=== PATIENT | female | born 2005 | race Hispanic/Latino ===

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

== ENCOUNTER 2024-01-02 21:43 | Emergency (ER) | payer SELFPAY ==
[~2024-01-02] VITALS: Ht 162.6 cm; Wt 82.7 kg
[~2024-01-02 21:43] MED LIST changes: +ONDA-282 PO; -ONDA4TAB6 PO
[2024-01-02 21:44] VITALS: BP 125/73; TEMP 98.2; O2SAT 99
== END 2024-01-03 00:12 | disposition left against medical advice (07) ==
LOC: M ED 21:43
DX: Z53.21 Procedure and treatment not carried out due to patient leaving prior to being seen by health care provider (principal)

== ENCOUNTER 2024-01-03 18:55 | Emergency (ER) | payer SELFPAY ==
[~2024-01-03] VITALS: Ht 162.6 cm; Wt 81.1 kg
[2024-01-03 21:58] VITALS: BP 120/68; TEMP 97.6; O2SAT 97
== END 2024-01-04 05:28 | disposition left against medical advice (07) ==
LOC: M ED 18:55
DX: Z53.21 Procedure and treatment not carried out due to patient leaving prior to being seen by health care provider (principal)

== ENCOUNTER 2024-01-05 20:57 | Emergency (ER) | payer SELFPAY ==
[~2024-01-05] VITALS: Ht 162.6 cm; Wt 81.7 kg
[2024-01-05 23:22] VITALS: BP 129/74; TEMP 97.5; O2SAT 100
[2024-01-06] MEDS: KETOROLAC 60MG 2ML VIAL IM ONE (00:07)
[2024-01-06 00:54] LABS: BASO % 0.3 % (0.0-1.0); EOS # 0.1 10^3/uL (0.0-0.5); EOS % 0.7 % (0.0-3.0); HEMATOCRIT 38.1 % (36.0-47.0); HEMOGLOBIN 12.1 g/dl (12.0-15.5); LYMPH # 1.7 10^3/uL (1.5-5.0); LYMPH % 17.7 % (24.0-44.0); MEAN CORPUSCULAR HEMOGLOBIN 26.5 pg (27.0-33.0); MEAN CORPUSCULAR HGB CONC 31.8 g/dl (32.0-36.5); MEAN CORPUSCULAR VOLUME 83.4 fl (80.0-96.0); MONO # 0.4 10^3/uL (0.0-0.8); MONO % 4.1 % (2.0-8.0); NEUTROPHILS # 7.2 10^3/uL (1.5-8.5); NEUTROPHILS % 76.8 % (36.0-66.0); PLATELET COUNT, AUTOMATED 267 10^3/uL (150-450); RED BLOOD COUNT 4.57 10^6/uL (4.00-5.40); WHITE BLOOD COUNT 9.4 10^3/uL (4.0-10.0)
[2024-01-06 00:58] LABS: BLOOD UREA NITROGEN 7 MG/DL (9-23); CARBON DIOXIDE LEVEL 29 MMOL/L (20-31); CHLORIDE LEVEL 107 MMOL/L (98-107); CREATININE FOR GFR 0.52 MG/DL (0.55-1.30); GLUCOSE, FASTING 79 MG/DL (60-100); SODIUM LEVEL 139 MMOL/L (136-145)
[2024-01-06] MEDS ORDERED: BACT800T5 PO (01:42)
[2024-01-06] MEDS: BACTRIM 160MG/800MG DS TAB PO ONE (01:45)
== END 2024-01-06 02:02 | disposition home or self-care (01) ==
LOC: M ED 20:57
DX: N61.1 Abscess of the breast and nipple (principal); Z79.899 Other long term (current) drug therapy; Z88.8 Allergy status to other drugs, medicaments and biological substances
CPT/HCPCS: 76642; 80048; 85025; 99283; J1885

== ENCOUNTER 2025-04-12 19:35 | Emergency (ER) | payer MEDICAID, OTHER, SELFPAY ==
[~2025-04-12] VITALS: Ht 160 cm; Wt 95.3 kg
[~2025-04-12 19:35] MED LIST changes: +BACT800T5 PO
[2025-04-12] MEDS ORDERED: FAMO40TA3 PO (19:41)
[2025-04-12] MEDS ORDERED: OMEP40CA4 PO (19:41)
[2025-04-12] MEDS: KETOROLAC 60 MG/2 ML VIAL IM ONE (22:49)
[2025-04-12] MEDS: ANUSOL HC CREAM 30 GM TOP PRN (22:49)
[2025-04-12] MEDS: LIDOCAINE 2% 5 ML JELLY UROJET TOP ONE (22:49)
[2025-04-12] MEDS ORDERED: [UNRECOGNIZED DRUG - CODE] TP (23:17)
[2025-04-13] MEDS ORDERED: PREPARATION H OINTMENT (HEMORRHOID) PR PRN (00:15)
[2025-04-13] MEDS: LIDOCAINE 2% 5 ML JELLY UROJET TOP ONE (00:29)
[2025-04-13 00:30] VITALS: BP 113/79; TEMP 98.2; O2SAT 98
== END 2025-04-13 00:31 | disposition home or self-care (01) ==
LOC: M ED 19:35
DX: K64.5 Perianal venous thrombosis (principal); F17.290 Nicotine dependence, other tobacco product, uncomplicated; Z88.8 Allergy status to other drugs, medicaments and biological substances; Z79.899 Other long term (current) drug therapy
CPT/HCPCS: 96372; 99283; J1885

== ENCOUNTER 2025-04-30 04:49 | Emergency (ER) | payer OTHER ==
[~2025-04-30] VITALS: Ht 160 cm; Wt 93.1 kg
[~2025-04-30 04:49] MED LIST changes: +FAMO40TA3 PO; +OMEP40CA4 PO; +[UNRECOGNIZED DRUG - CODE] TP
[2025-04-30 05:59] LABS: KETONE, URINE AUTO RFX 1+ mg/dL (NEGATIVE); LEUKOCYTE ESTERASE UR AUTO RFX NEGATIVE (NEGATIVE); MUCUS, URINE RFX SMALL (NEGATIVE); NITRITE, URINE AUTO RFX NEGATIVE (NEGATIVE); RBC, URINE AUTO RFX 14 /HPF (0-3); SQUAM EPITHELIAL CELL UR AURFX 1 /HPF (0-6); WBC, URINE AUTO RFX 2 /HPF (0-3)
[2025-04-30 06:22] LABS: HCG, SERUM QUALITATIVE NEGATIVE (NEGATIVE)
[2025-04-30 06:25] LABS: ALT/SGPT 18 U/L (7.0-40); AST/SGOT 18 U/L (<34); BASO # 0.0 10^3/uL (0.0-0.2); BASO % 0.2 % (0.0-1.0); CALCIUM LEVEL 9.8 MG/DL (8.5-10.1); CARBON DIOXIDE LEVEL 26 MMOL/L (20-31); CHLORIDE LEVEL 103 MMOL/L (98-107); CREATININE FOR GFR 0.60 MG/DL (0.55-1.30); EOS # 0.0 10^3/uL (0.0-0.5); EOS % 0.1 % (0.0-3.0); GLOMERULAR FILTRATION RATE > 90.0 (>60); LYMPH # 1.3 10^3/uL (1.5-5.0); LYMPH % 7.6 % (24.0-44.0); MONO # 0.6 10^3/uL (0.0-0.8); MONO % 3.7 % (2.0-8.0); NEUTROPHILS # 15.1 10^3/uL (1.5-8.5); NEUTROPHILS % 88.0 % (36.0-66.0); PLATELET COUNT, AUTOMATED 384 10^3/uL (150-450); POTASSIUM SERUM 4.4 MMOL/L (3.5-5.1); SODIUM LEVEL 140 MMOL/L (136-145)
[2025-04-30] MEDS: ONDANSETRON 4MG/2ML VIAL IV ONE (08:08)
[2025-04-30] MEDS: KETOROLAC 30 MG/ML 1 ML VIAL IV ONE (08:08)
[2025-04-30 09:35] LABS: HIV 1&2 SCREEN NEGATIVE (NEGATIVE)
[2025-04-30 10:17] LABS: GC DNA AMPLIFICATION NEGATIVE (NEGATIVE)
[2025-04-30] MEDS ORDERED: ISOVUE-370 76% 100 ML VIAL As Ordered ONE (10:33)
[2025-04-30 11:45] VITALS: TEMP 98.3
[2025-04-30] MEDS ORDERED: DOXY-441 PO (12:09)
[2025-04-30] MEDS ORDERED: METR-265 PO (12:09)
[2025-04-30] MEDS: DOXYCYCLINE HYCLATE 100 MG TABLET PO ONE (12:19)
[2025-04-30 12:20] VITALS: BP 118/79; O2SAT 100
== END 2025-04-30 12:29 | disposition home or self-care (01) ==
LOC: M ED 04:49
DX: A74.9 Chlamydial infection, unspecified (principal); K21.9 Gastro-esophageal reflux disease without esophagitis; Z88.8 Allergy status to other drugs, medicaments and biological substances; Z79.899 Other long term (current) drug therapy
CPT/HCPCS: 74177; 80048; 80076; 81001; 83690; 84703; 85025; 86780; 87210; 87389; 87486; 87581; 87633; 87798; 87810; 87850; 93041; 96374; 96375; 99285; J1885; J2405; Q9967